=== PATIENT | female | born 1985 | race Caucasian/White ===

== ENCOUNTER 2021-07-21 12:06 | Emergency (ER) | payer OTHER ==
[2021-07-21 12:13] VITALS: BP 125/86; PULSE 80; RESP 18; TEMP 97.7
[2021-07-21] MEDS ORDERED: SODIUM CHLORIDE 0.9% 1,000 ML IV STA (12:51)
[2021-07-21] MEDS ORDERED: ONDANSETRON 4 MG/2 ML VIAL IVP STA (13:12)
[2021-07-21 13:16] LABS: HCT 38.4 % (34.0-46.0); MCH 33.8 pg (25.0-35.0); MCHC 33.8 g/dL (31.0-37.0); MCV 100.2 fL (80.0-100.0); Mean Platelet Volume 7.3; Platelet Count 199 k/uL (150-450); RBC 3.84 m/uL (3.80-5.40); RDW 13.4 % (11.5-15.5); WBC 2.9 k/uL (3.8-10.6)
[2021-07-21 13:20] LABS: ALT 73 U/L (4-34); AST 357 U/L (14-36); African American GFR (CKD) >90 (>60 ml/min/1.73 sqM); Albumin 4.5 g/dL (3.5-5.0); Alkaline Phosphatase 115 U/L (38-126); Anion Gap 7 mmol/L; Blood Urea Nitrogen 6 mg/dL (7-17); Calcium 8.9 mg/dL (8.4-10.2); Carbon Dioxide 31 mmol/L (22-30); Chloride 102 mmol/L (98-107); Glucose 76 mg/dL (74-99); Lipase 235 U/L (23-300); Magnesium 1.6 mg/dL (1.6-2.3); Non-African American GFR(CKD) >90 (>60 ml/min/1.73 sqM); Potassium 4.1 mmol/L (3.5-5.1); Sodium 140 mmol/L (137-145); Total Bilirubin 0.8 mg/dL (0.2-1.3); Total Protein 7.8 g/dL (6.3-8.2)
[2021-07-21 14:04] LABS: Basophils # (M) 0.03 k/uL (0-0.2); Lymphocytes # (M) 1.19 k/uL (1.0-4.8); Monocytes # (M) 0.15 k/uL (0-1.0); Neutrophils # (M) 1.54 k/uL (1.3-7.7); Neutrophils % (M) 53 %; Nucleated Red Blood Cells 0 /100 WBC (0-0); RBC Morphology Normal; Total Cells Counted 100
--- NOTE | 2021-07-21 14:09 | ED ---
Alcohol HPI - General Chief Complaint: Alcohol Stated Complaint: Detox, from [place] Time Seen by Provider: 07/21/21 12:16 Source: patient, family, RN notes reviewed Mode of arrival: ambulatory Limitations: no limitations - History of Present Illness Initial Comments: This a 36-year-old female presents emergency from chief complaint of alcohol intoxication. Patient was sent over from [place] for evaluation as she had blood alcohol 309. Patient is a daily drinker. She states she did drink extra today she was nervous about going to rehab. Patient denies having any hallucinations, withdrawal symptoms. Patient is studying her feet she is here with family. Patient does not that she is prescribed benzodiazepine and which she does take a daily basis. - Related Data Home Medications Medication Instructions Recorded Confirmed Escitalopram Oxalate [Lexapro] 10 mg PO DAILY 07/21/21 07/21/21 Gabapentin [Neurontin] 300 mg PO TID 07/21/21 07/21/21 Gemfibrozil [Lopid] 600 mg PO BID 07/21/21 07/21/21 LORazepam [Ativan] 1 mg PO Q6H PRN 07/21/21 07/21/21 Lidocaine 5% Patch [Lidoderm] 1 patch TRANSDERM DAILY 07/21/21 07/21/21 Ondansetron [Zofran] 4 mg PO Q8H PRN 07/21/21 07/21/21 Allergies Allergy/AdvReac Type Severity Reaction Status Date / Time No Known Allergies Allergy Verified 07/21/21 13:39 Review of Systems ROS Statement: Those systems with pertinent positive or pertinent negative responses have been documented in the HPI. ROS Other: All systems not noted in ROS Statement are negative. Past Medical History Past Medical History: No Reported History History of Any Multi-Drug Resistant Organisms: None Reported Past Surgical History: No Surgical Hx Reported Past Psychological History: No Psychological Hx Reported Smoking Status: Current every day smoker Past Alcohol Use History: Abuse, Daily, Heavy Past Drug Use History: None Reported General Exam Limitations: no limitations, altered mental status General appearance: alert, in no apparent distress Head exam: Present: atraumatic, normocephalic, normal inspection Eye exam: Present: normal appearance, PERRL, EOMI. Absent: scleral icterus, conjunctival injection, periorbital swelling ENT exam: Present: normal exam, mucous membranes moist Neck exam: Present: normal inspection, full ROM. Absent: tenderness, meningismus, lymphadenopathy Respiratory exam: Present: normal lung sounds bilaterally. Absent: respiratory distress, wheezes, rales, rhonchi, stridor Cardiovascular Exam: Present: regular rate, normal rhythm, normal heart sounds. Absent: systolic murmur, diastolic murmur, rubs, gallop, clicks GI/Abdominal exam: Present: soft, normal bowel sounds. Absent: distended, tenderness, guarding, rebound, rigid Neurological exam: Present: alert Skin exam: Present: warm, dry, intact, normal color. Absent: rash Course Vital Signs 07/21/21 12:08 Temperature 97.7 F Pulse Rate 80 Respiratory 18 Rate Blood Pressure 125/86 O2 Sat by Pulse 99 Oximetry Medical Decision Making - Medical Decision Making Patient's labs reveal any significant findings. Patient is awake alert and orientated she is able to ambulate without difficulty. Patient will be sent back to [place] for treatment. - Lab Data Result diagrams: 07/21/21 13:00 07/21/21 13:00 Lab Results 07/21/21 07/21/21 Range/Units 13:00 13:00 WBC 2.9 L (3.8-10.6) k/uL RBC 3.84 (3.80-5.40) m/uL Hgb 13.0 (11.4-16.0) gm/dL Hct 38.4 (34.0-46.0) % MCV 100.2 H (80.0-100.0) fL MCH 33.8 (25.0-35.0) pg MCHC 33.8 (31.0-37.0) g/dL RDW 13.4 (11.5-15.5) % Plt Count 199 (150-450) k/uL MPV 7.3 Neutrophils % (Manual) 53 % Lymphocytes % (Manual) 41 % Monocytes % (Manual) 5 % Basophils % (Manual) 1 % Neutrophils # (Manual) 1.54 (1.3-7.7) k/uL Lymphocytes # (Manual) 1.19 (1.0-4.8) k/uL Monocytes # (Manual) 0.15 (0-1.0) k/uL Basophils # (Manual) 0.03 (0-0.2) k/uL Nucleated RBCs 0 (0-0) /100 WBC Manual Slide Review Performed RBC Morphology Normal Sodium 140 (137-145) mmol/L Potassium 4.1 (3.5-5.1) mmol/L Chloride 102 (98-107) mmol/L Carbon Dioxide 31 H (22-30) mmol/L Anion Gap 7 mmol/L BUN 6 L (7-17) mg/dL Creatinine 0.61 (0.52-1.04) mg/dL Est GFR (CKD-EPI)AfAm >90 (>60 ml/min/1.73 sqM) Est GFR (CKD-EPI)NonAf >90 (>60 ml/min/1.73 sqM) Glucose 76 (74-99) mg/dL Calcium 8.9 (8.4-10.2) mg/dL Magnesium 1.6 (1.6-2.3) mg/dL Total Bilirubin 0.8 (0.2-1.3) mg/dL AST 357 H (14-36) U/L ALT 73 H (4-34) U/L Alkaline Phosphatase 115 (38-126) U/L Total Protein 7.8 (6.3-8.2) g/dL Albumin 4.5 (3.5-5.0) g/dL Lipase 235 (23-300) U/L Disposition Clinical Impression: Alcoholic intoxication, Alcohol abuse Disposition: HOME SELF-CARE Condition: Stable Instructions (If sedation given, give patient instructions): Alcohol I ntoxication (ED) Additional Instructions: Please return to the Emergency Department if symptoms worsen or any other concerns. Is patient prescribed a controlled substance at d/c from ED?: No Referrals: Nonstaff,Physician [Primary Care Provider] - 1-2 days Time of Disposition: 14:09
== END 2021-07-21 15:50 | disposition home or self-care (01) ==
LOC: EC 12:06
DX: F10.129 Alcohol abuse with intoxication, unspecified (principal); F10.19 Alcohol abuse with unspecified alcohol-induced disorder; F17.200 Nicotine dependence, unspecified, uncomplicated
CPT/HCPCS: 82075; 36415; 80053; 83690; 83735; 85025; 99284; 96374; 96361; J2405